=== PATIENT | male | born 1990 | race Caucasian/White ===

== ENCOUNTER 2017-08-04 22:34 | Emergency (ER) | payer OTHER ==
[~2017-08-04] VITALS: Ht 170.2 cm; Wt 54.4 kg
[~2017-08-04 22:34] MED LIST: ACULAR 0.5%5 ML OS; AUGMENTIN 875-1 EACH PO; IBUPROFEN800 M1 PO; NARCAN4 MG NAS; PERCOCET 5-3251 EACH PO
[2017-08-04 22:48] VITALS: BP 124/71
--- NOTE | 2017-08-04 22:50 | ED GENERAL ADULT ---
History of Present Illness General Chief Complaint: Lower Extremity Problems Stated Complaint: "BOTH ANKLE PAIN W/SWELLING" Source: patient Exam Limitations: no limitations Vital Signs & Intake/Output Vital Signs & Intake/Output Vital Signs Date Time Temp Pulse Resp B/P B/P Pulse O2 O2 Flow FiO2 Mean Ox Delivery Rate 08/04 2248 Room Air 08/05 2247 98.5 70 16 124/71 100 Room Air Allergies Coded Allergies: NO KNOWN ALLERGIES (12/04/15) Reconcile Medications Amoxicillin/Potassium Clav (Augmentin 875-125 Tablet) 875 MG-125 MG TABLET 1 TAB PO BID dental infection Cephalexin (Keflex) 500 MG CAPSULE 1 CAP PO 4 TIMES/DAY INFECTION Clonidine HCl 0.1 MG TABLET 1 TAB PO BID withdrawal symptoms Ibuprofen 800 MG TABLET 1 TAB PO TID PRN pain Naloxone HCl (Narcan) 4 MG SPRAY 1 SPRAY LIZ X1 PRN OVERDOSE AND CALL 911 Oxycodone HCl/Acetaminophen (Percocet 5-325 MG Tablet) 5 MG-325 MG TABLET 1 TAB PO 4XDP PRN PAIN two...[id number] Sulfamethoxazole/Trimethoprim (Bactrim Ds Tablet) 800 MG-160 MG TABLET 1 TAB PO BID INFECtION Triage Note: BIBA FROM [facility] FOR REDNESS, SWELLING AND PAIN IN BILATERAL LOWER LEGS. REPORTEDLY WAS RUNNING AROUND CELL AT [facility] UNTIL LEGS BECAME PAINFUL. PT IS ALSO RECOVERING ADDICT ON METHADONE, HAS NOT RECIEVED HIS METHADONE TODAY. REPORTS THAT HE HAS REGRESSED IN RECOVERY AND HAS BEEN USING HEROIN AND CRACK. REPORT WEIGHT LOSS DUE TO DRUG USE. UPON ARRIVAL PT AWAKE, ALERT ORIENTED. REDNESS TO LOWER LEGS RIGHT WORSE THE LEFT. PT WITH POLICE ESCORT AND HANDCUFFED AND ANKLE CUFFED TO BED Triage Nurses Notes Reviewed? yes Onset: Gradual Duration: day(s): Timing: recent history Injury Environment: assisted Severity: mild Modifying Factors: Improves With: rest. Associated Symptoms: right leg redness HPI: 27 yo gentleman brought by police due to several issues. First, "I haven't eaten... I'm really hungry." Second, "I take 70mg of methadone and missed two doses.... I need some methadone." Third, "I have this area of redness on my right leg... I think it's infected." He denies SI/HI. The police released him in the ED. He denies SI/HI He is otherwise well. Past History Travel History Traveled to [place] past 21 day No Medical History Any Pertinent Medical History? 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 No Review of Systems Review of Systems Constitutional: Reports: no symptoms. EENTM: Reports: no symptoms. Respiratory: Reports: no symptoms. Cardiovascular: Reports: no symptoms. GI: Reports: no symptoms. Genitourinary: Reports: no symptoms. Musculoskeletal: Reports: no symptoms. Skin: Reports: no symptoms. Neurological/Psychological: Reports: no symptoms. Hematologic/Endocrine: Reports: no symptoms. Immunologic/Allergic: Reports: no symptoms. All Other Systems: Reviewed and Negative Physical Exam Physical Exam General Appearance: well developed/nourished, no apparent distress Head: atraumatic, normal appearance Eyes: Bilateral: normal appearance. Ears, Nose, Throat: normal pharynx, normal ENT inspection Neck: normal inspection, supple, full range of motion Respiratory: normal breath sounds, chest non-tender, no respiratory distress, quiet respiration, lungs clear Cardiovascular: regular rate/rhythm Gastrointestinal: normal bowel sounds, soft, non-tender Back: normal inspection Extremities: right leg with mild superficial induration and erythema [id number], without lymphangitic streaking. no sign of abscess. Skin: intact, normal color, warm/dry Core Measures ACS in differential dx? No CVA/TIA Diagnosis: No Sepsis Present: No Sepsis Focused Exam Completed? No Progress Differential Diagnoses I considered the following diagnoses in my evaluation of the patient: cellulitis, opioid dependence vs other. WELLS score zero... I doubt DVT. Plan of Care: Current Medications Sig/Valdo Start time Last Medication Dose Stop Time Status Admin Methadone HCl 70 MG ONCE ONE 08/04 2299 CANr (Dolophine) 08/04 230 Initial ED EKG: none Departure Departure Disposition: HOME OR SELF CARE Condition: Stable Clinical Impression Primary Impression: Cellulitis Secondary Impressions: Opioid dependence Referrals: Patient Has No Primary Care Dr (PCP/Family) Departure Forms: Customer Survey General Discharge Information Prescriptions: Current Visit Scripts Sulfamethoxazole/Trimethoprim (Bactrim Ds Tablet) 1 TAB PO BID #20 TAB Cephalexin (Keflex) 1 CAP PO 4 TIMES/DAY #40 CAP Clonidine HCl 1 TAB PO BID #4 TAB Comments pt given rx for abx and clonidine for opiod withdrawal... he will get his methadone on sunday. Critical Care Note Critical Care Note Critical Care Time: non-applicable
[2017-08-04] MEDS ORDERED: KEFLEX500 M1 PO (22:51)
[2017-08-04] MEDS ORDERED: BACTRIM DS TAB1 EACH PO (22:51)
[2017-08-04] MEDS ORDERED: CLONIDINE HCL0.1 MG PO (23:18)
== END 2017-08-04 23:31 ==
LOC: ERH 22:34
DX: L03.115 Cellulitis of right lower limb (principal)

== ENCOUNTER 2017-08-06 03:26 | Emergency (ER) | payer OTHER ==
[~2017-08-06 03:26] MED LIST changes: +BACTRIM DS TAB1 EACH PO; +CLONIDINE HCL0.1 MG PO; +KEFLEX500 M1 PO
[2017-08-06 03:30] VITALS: BP 118/72
--- NOTE | 2017-08-06 03:34 | ED GENERAL ADULT ---
History of Present Illness General Chief Complaint: General Adult Stated Complaint: BIBA FOR EVAL ? WITHDRAWL Source: patient Exam Limitations: no limitations Vital Signs & Intake/Output Vital Signs & Intake/Output Vital Signs Date Time Temp Pulse Resp B/P B/P Pulse O2 O2 Flow FiO2 Mean Ox Delivery Rate 08/06 0341 97 Room Air 08/06 0330 98.7 89 18 118/72 98 Room Air Allergies Coded Allergies: NO KNOWN ALLERGIES (12/04/15) Reconcile Medications Amoxicillin/Potassium Clav (Augmentin 875-125 Tablet) 875 MG-125 MG TABLET 1 TAB PO BID dental infection Cephalexin (Keflex) 500 MG CAPSULE 1 CAP PO 4 TIMES/DAY INFECTION Cephalexin (Keflex) 500 MG CAPSULE 1 CAP PO 4 TIMES/DAY INFECTION Clonidine HCl 0.1 MG TABLET 1 TAB PO BID withdrawal symptoms Ibuprofen 800 MG TABLET 1 TAB PO TID PRN pain Naloxone HCl (Narcan) 4 MG SPRAY 1 SPRAY LIZ X1 PRN OVERDOSE AND CALL 911 Oxycodone HCl/Acetaminophen (Percocet 5-325 MG Tablet) 5 MG-325 MG TABLET 1 TAB PO 4XDP PRN PAIN two...[id number] Sulfamethoxazole/Trimethoprim (Bactrim Ds Tablet) 800 MG-160 MG TABLET 1 TAB PO BID INFECtION Sulfamethoxazole/Trimethoprim (Bactrim Ds Tablet) 800 MG-160 MG TABLET 1 TAB PO BID INFECION Triage Note: PT CRISTOFER FROM PD, RELEASED FROM PD WITH TIMBER SELECTOR. PT C/O METHADONE WITHDRAWL AND BILAT FOOT PAIN, WAS HERE YESTERDAY AND DX WITH CELLULITIS OF FEET AND HAS NOT PICKED UP HIS ABX SCRIPT YET. STATES HAS NOT HAD HIS METHADONE SINCE SUNDAY. PT AOX3, CALM AND COOPERATIVE Triage Nurses Notes Reviewed? yes Onset: Gradual Duration: day(s): Timing: recent history Injury Environment: home Severity: moderate No Modifying Factors: none HPI: 27 yo gentleman here for opioid withdrawal and cellulitis. He was here last night, brought in by the police. He shares that the police "were at my house again and brought me here.... 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 My methadone clinic opens at 6:30 so I'll just go there after a few hours of sleep." He notes that he has missed his methadone for the past 3 days. He denies SI/HI. He is otherwise well. Past History Travel History Traveled to [place] past 21 day No Medical History Any Pertinent Medical History? 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 No Review of Systems Review of Systems Constitutional: Reports: no symptoms. EENTM: Reports: no symptoms. Respiratory: Reports: no symptoms. Cardiovascular: Reports: no symptoms. GI: Reports: no symptoms. Genitourinary: Reports: no symptoms. Musculoskeletal: Reports: no symptoms. Skin: Reports: no symptoms. Neurological/Psychological: Reports: no symptoms. Hematologic/Endocrine: Reports: no symptoms. Immunologic/Allergic: Reports: no symptoms. All Other Systems: Reviewed and Negative Physical Exam Physical Exam General Appearance: well developed/nourished, no apparent distress Head: atraumatic, normal appearance Eyes: Bilateral: normal appearance. Ears, Nose, Throat: normal pharynx, normal ENT inspection Neck: normal inspection, supple, full range of motion Respiratory: normal breath sounds Extremities: right anterior kc with area of induration and erythema [id number]. mild benign. Neurologic/Psych: no motor/sensory deficits, awake, alert, oriented x 3 Core Measures ACS in differential dx? No CVA/TIA Diagnosis: No Sepsis Present: No Sepsis Focused Exam Completed? No Progress Differential Diagnoses I considered the following diagnoses in my evaluation of the patient: cellulitis vs other opioid abuse vs withdrawal. Plan of Care: Current Medications Sig/Valdo Start time Last Medication Dose Stop Time Status Admin Cephalexin 500 MG ONCE ONE 08/06 344 UNVr (Keflex 500MG Cap) 08/06 345 Trimethoprim/ 1 TAB ONCE ONE 08/06 344 UNVr Sulfamethoxazole 08/06 345 (Bactrim DS) Initial ED EKG: none Departure Departure Disposition: HOME OR SELF CARE Condition: Stable Clinical Impression Primary Impression: Cellulitis Secondary Impressions: Opioid withdrawal Referrals: Patient Has No Primary Care Dr (PCP/Family) Departure Forms: Customer Survey General Discharge Information Prescriptions: Current Visit Scripts Sulfamethoxazole/Trimethoprim (Bactrim Ds Tablet) 1 TAB PO BID #20 TAB Cephalexin (Keflex) 1 CAP PO 4 TIMES/DAY #40 CAP Comments 08/06/17, 3:43am. started him on abx for mild cellulitis... encouraged follow up with his methadone clinic which opens in 2 hours, 45 minutes Critical Care Note Critical Care Note Critical Care Time: non-applicable
[2017-08-06] MEDS ORDERED: BACTRIM DS TAB1 EACH PO (03:38)
[2017-08-06] MEDS ORDERED: KEFLEX500 M1 PO (03:38)
== END 2017-08-06 03:47 ==
LOC: ERH 03:26
DX: L03.115 Cellulitis of right lower limb (principal); L03.116 Cellulitis of left lower limb; F11.23 Opioid dependence with withdrawal